=== PATIENT | female | born 1985 | race African-American/Black ===

== ENCOUNTER 2017-12-14 07:45 | Observation (INO) ==
[2017-12-14 10:02] LABS: Basophils % 0.4 % (0.0-0.8); Eosinophils # 0.1 10*3/uL (0.0-0.87); Eosinophils % 1.2 % (0.00-10.9); Immature Granulocytes % 0.4 %; Immature Granulocytes Absolute 0.04 #; Lymphocytes # 1.6 10*3/uL (1.4-4.0); Lymphocytes % 13.8 % (21.3-54.2); Mean Corpuscular HGB Conc 31.4 GM/DL (32-36); Mean Corpuscular Hemoglobin 26 PG (27-34); Mean Corpuscular Volume 83.1 FL (87-102); Mean Platelet Volume 9.7 FL (9.6-12.0); Monocytes # 0.5 10*3/uL (0.11-0.8); Monocytes % 4.4 % (1.7-12.7); Neutrophils % 79.8 % (38.7-73.9); Platelet Count 418 T/CUMM (130-400); Red Blood Count 4.21 MC/CUMM (3.8-5.5); Red Cell Distribution Width 16.2 % (9.3-17.3); White Blood Count 11.3 T/CUMM (4-12)
[2017-12-14] MEDS ORDERED: ONDANSETRON 4 MG/2 ML VIAL IV ONE (10:06)
[2017-12-14] MEDS ORDERED: MORPHINE 2 MG/1 ML SYRINGE IV ONE (10:06)
[2017-12-14] MEDS ORDERED: ONDANSETRON 4 MG/2 ML VIAL ONE (10:09)
[2017-12-14] MEDS ORDERED: MORPHINE 2 MG/1 ML SYRINGE ONE (10:09)
[2017-12-14 10:16] LABS: Calcium 8.8 MG/DL (8.5-10.1); Osmolality,Calculated 278.5 MOS/KG (273-304); Potassium 4.2 MMOL/L (3.5-5.1)
[2017-12-14 10:19] LABS: INR 0.9; PT Patient Result 9.9 SECS
[2017-12-14 10:38] LABS: Apearance,Urine CLOUDY (Clear); Bacteria,Urine Moderate /HPF (Few); Bilirubin,Urine Negative (Negative); Blood, Urine Large mg/dL (Negative); Glucose,Urine (UA) Negative (Negative); Ketones,Urine Negative (Negative); Mucus,Urine Moderate /LPF (Occasional); Nitrite,Urine Positive (Negative); Protein,Urine 30 MG/DL; RBC,Urine 639 /HPF (0-4); Squamous Epithelial Cell,Urine Many /HPF (0-10); Urine Color Amber (Yellow); Urine Specific Gravity 1.021 (1.001-1.035); Urine Urobilinogen < 2.0 EU/DL (0.2-1.0); WBC,Urine 28 /HPF (0-6)
[2017-12-14 10:44] LABS: Hypochromasia 1+; Lymphocytes 20 % (20-55); Microcytosis 1+; Platelet Estimate Increased; Segmented Neutrophils 78 % (50-85); Total Cells Counted 100
[2017-12-14 10:50] LABS: Alanine Aminotransferase 30 U/L (13-56); Albumin 3.9 G/DL (3.4-5.0); Alkaline Phosphatase 69 U/L (45-117); Aspartate Amino Transferase 15 U/L (0-37); Bilirubin,Direct < 0.100 MG/DL (0.0-0.20); Bilirubin,Indirect 0.3 MG/DL (0.0-1.0); Bilirubin,Total < 0.39 MG/DL (0.2-1.0); Total Protein 7.9 G/DL (6.4-8.3)
[2017-12-14] MEDS ORDERED: KETOROLAC 30 MG/1 ML VIAL IV ONE (11:18)
[2017-12-14] MEDS ORDERED: cefTRIAXone 1,000 MG in SODIUM CHLORIDE 0.9% 100 ML IV STA (11:18)
[2017-12-14] MEDS ORDERED: MORPHINE 2 MG/1 ML SYRINGE IV PRN (11:22)
[2017-12-14] MEDS ORDERED: PROMETHAZINE 25 MG/1 ML VIAL IM PRN (11:22)
[2017-12-14] MEDS ORDERED: BISACODYL 5 MG TABLET PO PRN (11:22)
[2017-12-14] MEDS ORDERED: ONDANSETRON 4 MG/2 ML VIAL IV PRN (11:22)
[2017-12-14] MEDS ORDERED: ACETAMINOPHEN 325 MG TABLET PO PRN (11:22)
[2017-12-14] MEDS ORDERED: KETOROLAC 30 MG/1 ML VIAL ONE (11:40)
[2017-12-14] MEDS ORDERED: cefTRIAXone 1,000 MG VIAL ONE (11:40)
[2017-12-14] MEDS: TAMSULOSIN 0.4 MG CAPSULE PO SCH (13:25)
[2017-12-14] MEDS ORDERED: MORPHINE 10 MG/1 ML VIAL IV PRN (14:00)
[2017-12-14] MEDS: LACTATED RINGERS 1,000 ML IV SCH ×2 (14:30→20:29)
[2017-12-14] MEDS: KETOROLAC 30 MG/1 ML VIAL IV PRN (17:13)
[2017-12-15] MEDS: KETOROLAC 30 MG/1 ML VIAL IV PRN (00:18)
[2017-12-15] MEDS: LACTATED RINGERS 1,000 ML IV SCH ×3 (03:00→22:17)
[2017-12-15 05:32] LABS: Basophils % 0.2 % (0.0-0.8); Eosinophils % 0.1 % (0.00-10.9); Hematocrit 32.3 VOL% (35.7-47.0); Hemoglobin 10.2 GM/DL (12.0-16.0); Immature Granulocytes % 0.5 %; Immature Granulocytes Absolute 0.06 #; Lymphocytes # 0.8 10*3/uL (1.4-4.0); Mean Corpuscular HGB Conc 31.6 GM/DL (32-36); Mean Corpuscular Hemoglobin 26 PG (27-34); Mean Platelet Volume 9.8 FL (9.6-12.0); Monocytes # 1.2 10*3/uL (0.11-0.8); Monocytes % 9.1 % (1.7-12.7); Neutrophils % 84.1 % (38.7-73.9); Platelet Count 319 T/CUMM (130-400); Red Blood Count 3.94 MC/CUMM (3.8-5.5); Red Cell Distribution Width 16.3 % (9.3-17.3); White Blood Count 13.1 T/CUMM (4-12)
[2017-12-15 06:13] LABS: Calcium 8.4 MG/DL (8.5-10.1); Osmolality,Calculated 275.7 MOS/KG (273-304)
[2017-12-15 06:15] LABS: Band Neutrophils 4 % (0-10); Eosinophils 1 % (0-10); Giant Platelets Few; Hypochromasia 1+; Lymphocytes 7 % (20-55); Platelet Estimate Adequate; Segmented Neutrophils 80 % (50-85); Total Cells Counted 100
[2017-12-15 06:16] LABS: Microcytosis Slight
[2017-12-15] MEDS ORDERED: cefTRIAXone 1,000 MG in SYRINGE 1 EACH IV ONE (07:00)
[2017-12-15] MEDS ORDERED: GENTAMICIN 80 MG/2 ML VIAL ONE (08:14)
[2017-12-15] MEDS ORDERED: ONDANSETRON 4 MG/2 ML VIAL ONE (08:43)
[2017-12-15] MEDS ORDERED: SEVOFLURANE 1 UNIT/15 MINUTE INH ONE (08:43)
[2017-12-15] MEDS ORDERED: DEXAMETHASONE 10 MG/1 ML VIAL ONE (08:43)
[2017-12-15] MEDS ORDERED: MIDAZOLAM 2 MG/2 ML VIAL ONE (08:43)
[2017-12-15] MEDS ORDERED: PROPOFOL 200 MG/20 ML VIAL IV ONE (08:43)
[2017-12-15] MEDS ORDERED: fentaNYL 100 MCG/2 ML VIAL ONE (08:43)
[2017-12-15] MEDS ORDERED: LACTATED RINGERS 1,000 ML IV ONE (08:44)
[2017-12-15] MEDS ORDERED: KETOROLAC 30 MG/1 ML VIAL ONE (08:44)
[2017-12-15] MEDS: TAMSULOSIN 0.4 MG CAPSULE PO SCH (12:53)
[2017-12-16 05:54] LABS: Calcium 8.7 MG/DL (8.5-10.1); Osmolality,Calculated 279.4 MOS/KG (273-304); Potassium 4.2 MMOL/L (3.5-5.1)
[2017-12-16 06:10] LABS: Basophils % 0.1 % (0.0-0.8); Hematocrit 30.6 VOL% (35.7-47.0); Hemoglobin 10.2 GM/DL (12.0-16.0); Immature Granulocytes % 1.8 %; Immature Granulocytes Absolute 0.28 #; Lymphocytes # 0.9 10*3/uL (1.4-4.0); Lymphocytes % 5.9 % (21.3-54.2); Mean Corpuscular HGB Conc 33.3 GM/DL (32-36); Mean Corpuscular Hemoglobin 27 PG (27-34); Mean Platelet Volume 10.1 FL (9.6-12.0); Monocytes # 1.1 10*3/uL (0.11-0.8); Monocytes % 6.7 % (1.7-12.7); Neutrophils # 13.4 10*3/uL (1.4-7.4); Neutrophils % 85.5 % (38.7-73.9); Platelet Count 315 T/CUMM (130-400); Red Blood Count 3.78 MC/CUMM (3.8-5.5); Red Cell Distribution Width 16.4 % (9.3-17.3); White Blood Count 15.7 T/CUMM (4-12)
[2017-12-16 06:11] LABS: Band Neutrophils 2 % (0-10); Hypochromasia 1+; Lymphocytes 4 % (20-55); Platelet Estimate Adequate; Segmented Neutrophils 92 % (50-85); Total Cells Counted 100
[2017-12-16 06:12] LABS: Giant Platelets Few; Microcytosis Slight
[2017-12-16 08:07] VITALS: BP 129/80
[2017-12-16] MEDS ORDERED: cefTRIAXone 1,000 MG in SYRINGE 1 EACH IV SCH (09:00)
== END 2017-12-16 09:25 | disposition home or self-care (01) ==
LOC: N.EDINP 07:45 → N.ED 07:45 → N.2E 12:55
PROVIDERS: ADMIT Surgery; ATTEND Surgery